=== PATIENT | female | born 1990 | race Two or more races ===

== ENCOUNTER 2017-07-29 18:23 | Emergency (ER) | payer OTHER ==
[2017-07-29 20:05] LABS: APPEARANCE,URINE CLEAR; BILIRUBIN,URINE NEGATIVE (NEGATIVE); GLUCOSE, URINE NEGATIVE (NEGATIVE); KETONES,URINE NEGATIVE (NEGATIVE); LEUKOCYTE ESTERASE,URINE NEGATIVE (NEGATIVE); NITRITE,URINE NEGATIVE (NEGATIVE); PROTEIN,URINE NEGATIVE (NEGATIVE); URINE SPECIFIC GRAVITY 1.006; UROBILINOGEN,URINE NEGATIVE mg/dL (<2.0)
--- NOTE | 2017-07-29 21:05 | ER Document Report ---
ED GI/ - General Chief Complaint: Vaginal Bleeding Stated Complaint: VAGINAL BLEEDING Time Seen by Provider: 07/29/17 18:40 Notes: Patient is a 11 week female who presents to the ED complaining of vaginal spotting for one week. She states its been light spotting noted only when she wipes but today was a couple of tablespoons amount. She called her financial center manager in [place] and was told to come to the ED for an US. Patient states she has been evaluated by her financial center manager in the office at 11 weeks where they did a doppler for heart tones and didnt hear anything, no blood work was done at that time. She states she told that office of her vaginal spotting on so she went and had outpatient blood work done without an US. She has not had an US confirming IUP at all during this . Otherwise healthy female, denies any other medical problems, past surgical history TRAVEL OUTSIDE OF THE [place] IN LAST 30 DAYS: No - Related Data Allergies/Adverse Reactions: No Known Allergies Allergy (Verified 07/29/17 18:24) Past Medical History - Social History Smoking Status: Unknown if Ever Smoked Family History: Reviewed & Not Pertinent Patient has suicidal ideation: No Patient has homicidal ideation: No Renal/ Medical History: Denies: Hx Peritoneal Dialysis Review of Systems - Review of Systems Constitutional: No symptoms reported Cardiovascular: No symptoms reported Respiratory: No symptoms reported Gastrointestinal: No symptoms reported Genitourinary: No symptoms reported Female Genitourinary: See HPI Musculoskeletal: No symptoms reported Neurological/Psychological: No symptoms reported -: Yes All other systems reviewed and negative Physical Exam - Vital signs Vitals: Pulse Resp Pulse Ox 81 15 100 07/29/17 18:25 07/29/17 18:25 07/29/17 18:25 - Notes Notes: PHYSICAL EXAM GENERAL: Alert, interacts well. LUNGS: Clear to auscultation bilaterally, no wheezes, rales, or rhonchi. No respiratory distress. HEART: Regular rate and rhythm. No murmurs, gallops, or rubs. ABDOMEN: Soft, nondistended, nontender. No guarding, rebound, or rigidity.. Bowel sounds present in all 4 quadrants. Female exam deferred EXTREMITIES: Moves all 4 extremities spontaneously. No edema, radial and dorsalis pedis pulses 2/4 bilaterally. No cyanosis. NEUROLOGICAL: Alert and oriented x4. Normal speech. PSYCH: Normal affect, normal mood. SKIN: Warm, dry, normal turgor. No rashes or lesions noted. Course - Re-evaluation Re-evalutation: 07/29/17 20:05 Patient is a 27-year-old female who is hemodynamically stable, no acute distress and afebrile. Patient and her refusing any blood work at this time because she states that she had some done on she does not see the reason for any to be done tonight. Discussed with patient that if we move forward with getting an ultrasound that it will be likely inconclusive with out a beta-hCG to compare with the images for the radiologist. Patient states that she understands this and that her OB financial center manager told her just to come for an ultrasound. Also reviewed with the patient that a RhoGam is indicated given that it is her first to assess for antibodies. Patient states that this test if necessary would have been done on so she is declining for that to be assessed today. 07/29/17 21:42 Transvaginal ultrasound shows presumed gestational sac in the uterus measuring between 15-25 mm with an estimated gestational age of 6-7 weeks without evidence of a yolk sac or pole. No heart rate to assess. Did discuss results with the patient stating that if she is indeed 11 weeks that this findings are concerning but without a beta-hCG not able to determine if this is possibly a early viable . Patient mainly state that they spoke with their nurse financial center manager back home in [place] who told him that they do not need any blood work to be done here today and to be discharged home and to follow-up with her this week. I did discuss with the patient had a repeat beta hCG is necessary from the labs but she states that if her OB does not want it she does not want any blood work done. Patient without any concerns for exsanguination for vaginal bleeding at this time is stable and capable of making decisions. Patient is stable for discharge home. - Vital Signs Vital signs: Temp Pulse Resp BP Pulse Ox 98.7 F 73 20 112/63 100 07/29/17 22:26 07/29/17 22:26 07/29/17 22:26 07/29/17 22:26 07/29/17 22:26 - Laboratory Laboratory results interpreted by me: 07/29/17 19:33 Urine Blood MODERATE H - Diagnostic Test Radiology reviewed: Reports reviewed Discharge - Discharge Clinical Impression: Vaginal bleeding affecting early Condition: Good Disposition: HOME, SELF-CARE Additional Instructions: Due to declining blood work today, we are not able to assess the viability of your based on ultrasound results alone. Also to you declining blood work today, we are not able to assess your RhoGam status which leaves him at risk for antibodies attacking your current and future pregnancies. Please follow-up with your nurse financial center manager tomorrow. THREATENED MISCARRIAGE: You have been evaluated for a possible miscarriage. At this time, there is no indication that a miscarriage will occur. Most women with your symptoms will go on to have a perfectly normal baby. However, careful observation will be necessary. A miscarriage occurs when the fetus is abnormal. There is no medicine or treatment for it. You should rest in bed until the symptoms have resolved. Do not douche or have sex for at least a week, or until OK'd by the doctor. Call the doctor or return for re-examination if there is an increase in bleeding or cramping, or passage of tissue. RHOGAM: Rhogam is given to a woman who has Rh negative blood type when she has vaginal bleeding during her or at the time of the delivery of her baby. If a woman is Rh negative, her body will form antibodies against red blood cells from an Rh positive fetus or baby that mix with her blood during a threatened or actual miscarraige or delivery. These antibodies will remain in the woman's body forever and will attack any future Rh positive fetus preventing it from developing into a normal baby. Rhogam is given to prevent the mother's body from forming these antibodies. REPEAT BLOOD TEST: At this time, it is uncertain if you have a viable . During the first three months of , the hormone produced from the placenta will steadily rise, usually doubling in value every 2 - 3 days. In order to determine if your is viable and likely be succesful, a repeat of this blood test for the hormone is recommended in 2 - 3 days. An order for this test to be done as an outpatient is being provided. After you have this repeat test done, call your doctor or call us for the results. If the value of the test is increasing as would be expected in a normal , then your is likely to be ok. However, if the value of the test is declining, it will suggest something has happened with your and it will not likely be a successful . FOLLOW-UP CARE: If you have been referred to a physician for follow-up care, call the physician s office for an appointment as you were instructed or within the next two days. If you experience worsening or a significant change in your symptoms (very heavy bleeding with large clots of blood, passage of tissue, more severe abdominal / pelvic pain or cramping, feeling faint or severe weakness, fever, etc.), notify the physician immediately or return to the Emergency Department at any time for re-evaluation. OBSTETRIC-GYNECOLOGIC (OB-CLEANING AND MAINTENANCE WORKER) PHYSICIANS IN [place]: [facility] [address] [place] [address] [phone] Forms: Return to Work
--- NOTE | 2017-07-29 21:06 | RADIOLOGY REPORT (SQ) ---
EXAM DESCRIPTION: U/S OB TRANSVAG W/DOPPLER COMPLETED DATE/TIME: 07/29/2017 8:47 pm REASON FOR STUDY: vaginal bleeding ; COMPARISON: None. TECHNIQUE: Transvaginal and transabdominal static and realtime grayscale images acquired of the pelv is. Additional selected spectral and color Doppler images recorded. All images stored on PACs. bHCG: Not available. LIMITATIONS: None. FINDINGS: Presumed gestational sac in the uterus measuring between 15 and 25 mm, EGA: 6-7 weeks No yolk sac or pole identified. SUBCHORIONIC BLEED: No SIZE OF BLEED: Not applicable. UTERUS: No masses. No anomalies. CERVICAL LENGTH: 3.2 cm Closed. RIGHT ADNEXA: Normal ovary with normal vascular flow. No adnexal free fluid. No adnexal masses. LEFT ADNEXA: Ovary not identified. No adnexal free fluid. No adnexal masses. FREE FLUID: None. OTHER: No other significant finding. IMPRESSION: Presumed gestational sac in the uterus measuring between 15 and 25 mm, EGA: 6-7 weeks No yolk sac or pole identified. Trimester of : First - 0 to 13 weeks. TECHNICAL DOCUMENTATION: JOB ID: [id number] [place]-[id number] [employer]- All Rights Reserved
[2017-07-29 22:27] VITALS: BP 112/63
== END 2017-07-29 21:50 | disposition home or self-care (01) ==
LOC: ER 18:23
DX: O20.9 Hemorrhage in early pregnancy, unspecified (principal); Z3A.00 Weeks of gestation of pregnancy not specified
CPT/HCPCS: 76817; 81001; 93976; 99284